=== PATIENT | female | born 1980 | race Caucasian/White ===

== ENCOUNTER 2017-07-27 15:20 | Outpatient (CLI) ==
--- NOTE | 2017-07-27 16:41 | MRI ---
EXAM: MRI of the right knee without contrast COMPARISON: None available. HISTORY: Right knee pain and swelling. TECHNIQUE: Multiplanar noncontrast MR images of the right knee were acquired using a 1.5 Ana Laura magne t. FINDINGS: The medial and lateral menisci are intact without identification of a surfacing meniscal t ear. No parameniscal cyst. Inversion recovery hyperintense signal within the substance of the anterior cruciate ligament though intact fibers are identified suggesting mucoid degeneration versus a sprain. The posterior cruciate l igaments intact. Minimal sprain with scarring of the medial collateral ligament. The lateral collat eral ligament complex and posterolateral corner ligaments are intact. Minimal patellar/quadriceps te ndinosis without a tendon tear. No abnormal subluxation of the patella. Sprain with scarring of the medial patellar retinaculum complex. Subcutaneous edema anteriorly without a drainable fluid collec tion. 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 There is also thinning and ulceration of the cartilage along the opposing articular surface o f the trochlear groove measuring 7 mm in extent. Subtle signal changes in mild contour abnormality o f the medial femoral condyle along the medial weightbearing surface over a region measuring 1.8 x 1.4 x 0.9 cm suggesting sequela of an old osteochondral lesion/osteochondral injury. There is thinning and ulceration of the overlying cartilage at that site with mild contour deformity of the subchondral plate without evidence of an unstable displaced osteochondral fragment. Small joint effusion, nonsp ecific. Slit-like popliteal cyst. No osteochondral body. IMPRESSION: 1. Intact menisci. 2. Findings suggesting an old osteochondral lesion/osteochondral injury of the medial femoral condyl e with associated chondrosis. No unstable or displaced osteochondral fragment or evidence of an acut e injury. 3. Patellofemoral compartment chondrosis as described. 4. Subcutaneous edema. 5. Minimal patellar/quadriceps tendinosis. Sprain with scarring of the medial patellar retinaculum. 6. Mucoid degeneration versus minimal sprain of the anterior cruciate ligament. Minimal sprain of t he medial collateral ligament. 7. Small joint effusion. Slit-like popliteal cyst
== END 2017-07-27 15:21 | disposition home or self-care (01) ==
LOC: RAD 15:20
PROVIDERS: ATTEND Internal Medicine
DX: M25.561 Pain in right knee (principal); M25.461 Effusion, right knee; R26.2 Difficulty in walking, not elsewhere classified

== ENCOUNTER 2018-07-07 09:00 | Outpatient (RCR) | END 2018-07-18 23:59 | PROVIDERS: ATTEND Orthopaedic Surgery | DX: M17.11 Unilateral primary osteoarthritis, right knee (principal); M25.561 Pain in right knee; M62.89 Other specified disorders of muscle; Z98.890 Other specified postprocedural states ==

== ENCOUNTER 2018-07-25 10:19 | Outpatient (RCR) ==
--- NOTE | 2018-07-25 10:40 | RS.QUICKDC ---
Discharge from PT Date of Discharge: 07/25/18 Number of Visits: 5 Reason for Discharge: Patient has good knowledge of HEP,has copies of each exercise.Her R knee flexion is 110 ,but painful,continues to have increased pain as the day progresses.She has seen Dr. Dodge recently,and may consider a total knee replacement ,as she is only getting temporary relief from cortisone ,knee scope ,and therapy.Todays session charges are Ther. Act. 2 (30 mins. )
== END 2018-08-18 23:59 ==
PROVIDERS: ATTEND Orthopaedic Surgery
DX: M17.11 Unilateral primary osteoarthritis, right knee (principal); M25.561 Pain in right knee; G89.29 Other chronic pain; M62.89 Other specified disorders of muscle; Z98.890 Other specified postprocedural states

== ENCOUNTER 2018-11-15 11:00 | Outpatient (RCR) ==
--- NOTE | 2018-10-25 11:50 | RS.OPPTEV2 ---
Date of Note: 10/25/18 Visit #: 1 Number of visits approved by Insurance: no visit limit Date of Evaluation: 10/25/18 Payer Source: Insurance Date of Onset/Injury/Change in Status: 09/23/18 Surgery Performed?: Yes (R TKR 09/23/18) Treatment Diagnosis: R knee OA, R knee pain, aftercare following total knee replacement History of Condition/Mechanism of Injury:: pt states her R knee began to hurt in 08/2017 when began working out at the gym. States both knees became swollen and painful. pt underwent R knee arthroscopy on 05/26/18. pt did undergo PT after arthroscopy, however continued with pain. pt underwent R TKR on 09/23/18. 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 Functional Limitations: Sleep, Self Care, ADL's, Lifting, Carrying, Standing, Bending, Squatting, Ambulation, Community Access/Integration Current Subjective/complaints:: pt states she had a bad home health experience. States therapist was very aggressive and did not listen when she said she was hurting. States she does feel she has done well. States she may have overdone it yesterday going to the mall with her daughter. Treatment Side (optional): Right *Precautions: LATEX ALLERGY Medical History Medical History: Arthritis Surgical History: Knee Replacement (R TKR 09/23/18), Cholecystectomy, Hysterectomy Surgical History Comments:: R hand surgery. Smoking Status: Current every day smoker Hx Home Medications: none Patient's Goals: improve R knee ROM Pain Assessment - Pain Description Pain Location: R knee Pain Description: Sharp, Aching Current Pain Intensity: 5/10 Functional Outcome Measure LE Functional Scale: 46 - G Codes & Severity Modifier G Codes & Modifier: n/a Source of G Code score: n/a Observation - Observation Posture: Forward Head, Rounded Shoulders Handedness: Right Girth Measurement Lower: R knee 42.5cm, 10 cm below 36cm, 10 cm above 44cm. L knee 40 cm, 10 cm below 36cm, 10 cm above 44cm Gait - Gait Pattern General Gait Pattern Observation: Antalgic Gait Gait Comments: pt amb with antalgic gait with decreased stance time on R LE, decreased step length. pt amb independently without AD General Range of Motion: BUE WFL's. LLE WFL's. R LE hip and ankle WFL's Muscle Strength: BUE 5/5. LLE 5/5. RLE hip flex 4/5, ankle Df/PF 4+/5 Knee ROM: Left WFL's Knee Muscle Strength: Left WFL's - Right Knee ROM Right Knee Extension: -8 Right Knee Flexion: 90 (AROM in sitting) Knee ROM Limitations: Soft Tissue Tightness, Muscle Weakness, Pain - Right Knee Strength Right Knee Extension: 3- Fair- Right Knee Flexion: 3- Fair- - Special Tests Patella Apprehension Test: Negative Right Patella J-sign: Negative Right Palpation Palpation Findings: Tenderness Comments:: R post and medial knee Sensation - Sensation Right Upper Extremity: Intact/Normal Left Upper Extremity: Intact/Normal Right Lower Extremity: Impaired (pt with area of N/T lat to incision R knee) Left Lower Extremity: Intact/Normal Balance - Sitting Balance Static Sitting Balance: Normal Dynamic Sitting Balance: Normal - Standing Balance Static Standing Balance: Good Dynamic Standing Balance: Good - Heat/Cryotherapy Treatment: Cryotherapy Comments:: R knee, in long sitting Interventions - Exercise/Activities/Manual Therapy Exercises/Activities: pt performed QS, SAQ, HS, hip abd/add, SLR, LAQ, standing ham curls x 10, short squats x 3 (pt with slight discomfort in L knee with audible crepitus). pt also rode bike x 1-2 mins pt able to complete full revolution with R hip hiking. Manual Therapy: n/a HOME EXERCISE PROGRAM: pt given written HEP including: QS with foot elevated, SAQ, LAQ, SLR, standing heel raises, standing ham curls - Charges Timed Code Treatment Minutes: 49 Total Treatment Time: 53 Procedures billed for this date of service:: eval remi, ex EVALUATION COMPLEXITY LEVEL EVALUATION COMPLEXITY LEVEL: HISTORY: Low, EXAM OF BODY SYSTEMS: Medium, CLINICAL PRESENTATION: Low, CLINICAL DECISION MAKING: Low Assessment Assessment: pt presents with R knee effusion, decreased ROM, decreased strength , decreased gait ability. pt amb with antalgic gait pattern. Feel pt would benefit from skilled PT for therex for R knee ROM, strength and modalities to decrease edema. Patient Education: Home Exercise Program, Education of Plan of Care Rehab Potential: Good Short Term Goals Goal #1: pt independent with initial HEP Goal to be met by: 11/04/18 Goal #2: Decrease edema R knee Goal to be met by: 11/04/18 Goal #3: Improve R knee ROM flex 95 ext -5 Goal to be met by: 11/04/18 Goal #4: Able to ride bike 5 mins and complete full revolution without hip hiking Goal to be met by: 11/04/18 Turntable Operator Goals Goal #1: R knee ROM flex 100 ext 0 Goal to be met by: 11/18/18 Goal #2: pt amb community distances with less antalgic gait pattern decreased pain Goal to be met by: 11/18/18 Goal #3: pt report ability to perform household duties with less pain Goal to be met by: 11/18/18 Goal #4: Improve R quad strength 4/5 Goal to be met by: 11/18/18 Plan - Treatment to be Provided Procedures: Therapeutic Exercises, Therapeutic Activity, Gait Training, Manual Therapy, Patient Education Modalities: Electrical Stimulation, Ultrasound/Phonophoresis, Cryotherapy, Hot Packs - Treatment Plan Frequency: 2-3x a week Duration: 4 weeks Dates of Chcf Goals: 11/18/18 Expiration date of current Insurance Approval:: n/a - Treatment Code (1) Aftercare following knee joint replacement surgery Code(s): Z47.1 - AFTERCARE FOLLOWING JOINT REPLACEMENT SURGERY; Z96.659 - PRESENCE OF UNSPECIFIED ARTIFICIAL KNEE JOINT Qualifiers: Laterality: right Qualified Code(s): Z47.1 - Aftercare following joint replacement surgery; Z96.651 - Presence of right artificial knee joint (2) Effusion, right knee Code(s): M25.461 - EFFUSION, RIGHT KNEE (3) Osteoarthritis of right knee Code(s): M17.9 - OSTEOARTHRITIS OF KNEE, UNSPECIFIED Qualifiers: Osteoarthritis type: primary Qualified Code(s): M17.11 - Unilateral primary osteoarthritis, right knee (4) Pain in right knee Code(s): M25.561 - PAIN IN RIGHT KNEE Qualifiers: Chronicity: chronic Qualified Code(s): M25.561 - Pain in right knee; G89.29 - Other chronic pain
--- NOTE | 2018-10-26 11:16 | RS.OPPTDN ---
Subjective Date of Note: 10/26/18 Visit #: 2 Number of visits approved by Insurance: no limit Date of Evaluation: 10/25/18 Payer Source: Insurance Treatment Diagnosis: R knee OA, R knee pain, aftercare following total knee replacement Current Subjective/complaints:: Patient reports the R knee pain is about the same as yesterday at evaluation. *Precautions: LATEX ALLERGY Pain Assessment - Pain Description Pain Location: R knee Pain Description: Tightness, Aching Current Pain Intensity: 5/10 - Treatment Modality: Electrical Stim Unattended Parameters/Method Applied: 20 mins. IFC @ 12 -14 ma to R knee. Patient Position: Supine - Heat/Cryotherapy Treatment: Cryotherapy (concurrent with e-stim) Interventions - Exercise/Activities/Manual Therapy Exercises/Activities: 20 mins. , pt performed QS, SAQ, HS, hip abd/add, SLR.Grade I AP joint mobs.AROM is -8 extension ,92 flexion.Passive extension is unchanged ,flexion is 95 -98 after joint mobs. Total minutes of Exercise: 20 Manual Therapy: n/a Total minutes of Manual Therapy: 0 HOME EXERCISE PROGRAM: pt given written HEP including: QS with foot elevated, SAQ, LAQ, SLR, standing heel raises, standing ham curls - Charges Timed Code Treatment Minutes: 20 Total Treatment Time: 40 Procedures billed for this date of service:: cp,e-stim,ex 1 Assessment: Patient has moderate edema and warmth in the R knee.She does have increased pain at end range of flexion today,but also understands the edema is the limiting factor at this time.She is attentive and compliant to HEP. Patient Education: Education of diagnosis, Body/Joint mechanics, Home Exercise Program, Home Safety, Activity Modification, Education of Plan of Care Patient demonstrates compliance with HEP?: Yes Short Term Goals Goal #1: pt independent with initial HEP Goal to be met by: 11/04/18 Progress towards Goal:: Progressing Goal #2: Decrease edema R knee Goal to be met by: 11/04/18 Goal #3: Improve R knee ROM flex 95 ext -5 Goal to be met by: 11/04/18 Progress towards Goal:: Progressing Goal #4: Able to ride bike 5 mins and complete full revolution without hip hiking Goal to be met by: 11/04/18 Detention Goals Goal #1: R knee ROM flex 100 ext 0 Goal to be met by: 11/18/18 Goal #2: pt amb community distances with less antalgic gait pattern decreased pain Goal to be met by: 11/18/18 Goal #3: pt report ability to perform household duties with less pain Goal to be met by: 11/18/18 Goal #4: Improve R quad strength /5 Goal to be met by: 11/18/18 Plan Dates of Scaffold Worker Goals: 11/18/18 Expiration date of current Insurance Approval:: na PLAN: Cont. skilled PT per TKA protocol.Patient is 4 1/2 weeks post-op.
--- NOTE | 2018-10-28 11:16 | RS.OPPTDN ---
Subjective Date of Note: 10/28/18 Visit #: 3 Number of visits approved by Insurance: no limit Date of Evaluation: 10/25/18 Payer Source: Insurance Treatment Diagnosis: R knee OA, R knee pain, aftercare following total knee replacement Current Subjective/complaints:: Patient reports the calf pain bothers her more than the knee this morning,but does understand this is due to the antalgic gait. *Precautions: LATEX ALLERGY Pain Assessment - Pain Description Pain Location: R knee and calf Pain Description: Tightness, Dull, Aching Current Pain Intensity: 310 - Treatment Modality: Electrical Stim Unattended Parameters/Method Applied: 20 mins. IFC @ 15-17 ma to R knee. - Heat/Cryotherapy Treatment: Cryotherapy (concurrent with e-stim) Interventions - Exercise/Activities/Manual Therapy Exercises/Activities: 35 mins. , pt performed QS,SAQ,heelslides,SLR's,passive extension on bolster,contract-relax to quads/hams,patellar mobs. Manual Therapy: n/a HOME EXERCISE PROGRAM: pt given written HEP including: QS with foot elevated, SAQ, LAQ, SLR, standing heel raises, standing ham curls - Charges Timed Code Treatment Minutes: 35 Total Treatment Time: 55 Procedures billed for this date of service:: cp,e-stim,ex 2 Assessment: Progressing ,has less warmth ,less edema .She has increased motion with less pain present.She is compliant to HEP Patient Education: Education of diagnosis, Body/Joint mechanics, Home Exercise Program, Home Safety, Activity Modification, Education of Plan of Care Patient demonstrates compliance with HEP?: Yes Short Term Goals Goal #1: pt independent with initial HEP Goal to be met by: 11/04/18 Progress towards Goal:: Progressing Goal #2: Decrease edema R knee Goal to be met by: 11/04/18 Progress towards Goal:: Progressing Goal #3: Improve R knee ROM flex 95 ext -5 Goal to be met by: 11/04/18 (101 flex,-5 ext.) Progress towards Goal:: Partially Met (not yet consistently ,these numbers are with stretch) Goal #4: Able to ride bike 5 mins and complete full revolution without hip hiking Goal to be met by: 11/04/18 (na today) Care Home Goals Goal #1: R knee ROM flex 100 ext 0 Goal to be met by: 11/18/18 Progress towards goal: Progressing Goal #2: pt amb community distances with less antalgic gait pattern decreased pain Goal to be met by: 11/18/18 Progress towards goal: Progressing Goal #3: pt report ability to perform household duties with less pain Goal to be met by: 11/18/18 Goal #4: Improve R quad strength 4/5 Goal to be met by: 11/18/18 Progress towards goal: Progressing Plan Dates of Bakery Clerk Goals: 11/18/18 Expiration date of current Insurance Approval:: na PLAN: Cont. skilled PT to increase strength and motion in the R knee.
--- NOTE | 2018-10-31 11:26 | RS.OPPTDN ---
Subjective Date of Note: 10/31/18 Visit #: 4 Number of visits approved by Insurance: no limit Date of Evaluation: 10/25/18 Payer Source: Insurance Treatment Diagnosis: R knee OA, R knee pain, aftercare following total knee replacement Current Subjective/complaints:: Patient has less antalgic gait ,reports less pain with walkin gtoday. *Precautions: LATEX ALLERGY Pain Assessment - Pain Description Pain Location: R knee Pain Description: Tightness, Dull, Throbbing, Aching Current Pain Intensity: 1-2 at rest Other Comments regarding Pain:: elevates with end range flexion - Treatment Modality: Electrical Stim Unattended Parameters/Method Applied: IFC to R knee @ 12-16 ma. Patient Position: Supine - Heat/Cryotherapy Treatment: Cryotherapy (concurrent with e-stim) Interventions - Exercise/Activities/Manual Therapy Exercises/Activities: 40 mins. ,( beginning with 5 mins. on recumbent bike ) pt performed ankle pumps with yellow t-band , QS,SAQ,heelslides,SLR's,passive extension on bolster,contract-relax to quads/hams,patellar mobs.AROM is 101 flex ,-5 extension with quad set.Passive flexion to 105 briefly.Grade I AP joint mobs. intermittently for increased flexion. Total minutes of Exercise: 40 Manual Therapy: n/a Total minutes of Manual Therapy: 0 HOME EXERCISE PROGRAM: pt given written HEP including: QS with foot elevated, SAQ, LAQ, SLR, standing heel raises, standing ham curls - Charges Timed Code Treatment Minutes: 55 Total Treatment Time: 60 Procedures billed for this date of service:: cp,e-stim ,ex 2 Assessment: Progressing well, less edema ,less warmth present ,has softer end feel for flexion today.She has less antalgic gait pattern.She is compliant to all recommendations of the therapy staff. Patient Education: Education of diagnosis, Body/Joint mechanics, Home Exercise Program, Home Safety, Activity Modification, Education of Plan of Care Patient demonstrates compliance with HEP?: Yes Short Term Goals Goal #1: pt independent with initial HEP Goal to be met by: 11/04/18 Progress towards Goal:: Progressing Goal #2: Decrease edema R knee Goal to be met by: 11/04/18 Progress towards Goal:: Progressing Goal #3: Improve R knee ROM flex 95 ext -5 Goal to be met by: 11/04/18 (101 flex,-5 ext.) Progress towards Goal:: Partially Met (flexion is met ,extension is -8 to -5) Goal #4: Able to ride bike 5 mins and complete full revolution without hip hiking Goal to be met by: 11/04/18 Progress towards Goal:: Met Skilled Nursing Goals Goal #1: R knee ROM flex 100 ext 0 Goal to be met by: 11/18/18 Progress towards goal: Progressing Goal #2: pt amb community distances with less antalgic gait pattern decreased pain Goal to be met by: 11/18/18 Progress towards goal: Progressing Goal #3: pt report ability to perform household duties with less pain Goal to be met by: 11/18/18 Progress towards goal: Progressing Goal #4: Improve R quad strength /5 Goal to be met by: 11/18/18 Progress towards goal: Progressing Plan Dates of Sales Recruiter Goals: 11/18/18 Expiration date of current Insurance Approval:: na PLAN: Cont. skilled PT per TKA protocol.
--- NOTE | 2018-11-02 11:17 | RS.OPPTDN ---
Subjective Date of Note: 11/02/18 Visit #: 5 Number of visits approved by Insurance: no limit Date of Evaluation: 10/25/18 Payer Source: Insurance Treatment Diagnosis: R knee OA, R knee pain, aftercare following total knee replacement Current Subjective/complaints:: Patient has increased R knee swelling ,but she reports she has been on her feet more the last couple of days.He rpain is minimal at this time. *Precautions: LATEX ALLERGY Pain Assessment - Pain Description Pain Location: R knee Pain Description: Tightness, Dull, Aching Current Pain Intensity: 1/10 at rest - Heat/Cryotherapy Treatment: Cryotherapy (10 mins. after exercises) Interventions - Exercise/Activities/Manual Therapy Exercises/Activities: 50 mins. ,( beginning with 10 mins. on recumbent bike ) pt performed ankle pumps with yellow t-band , QS,SAQ,heelslides,SLR's,passive extension on bolster,contract-relax to quads/hams,patellar mobs.AROM is 105 flex ,-5 extension with quad set.Grade I AP joint mobs. intermittently for increased flexion. Total minutes of Exercise: 50 Manual Therapy: n/a Total minutes of Manual Therapy: 0 HOME EXERCISE PROGRAM: pt given written HEP including: QS with foot elevated, SAQ, LAQ, SLR, standing heel raises, standing ham curls - Charges Timed Code Treatment Minutes: 40 Total Treatment Time: 60 Procedures billed for this date of service:: ex 3, cp Assessment: Patient continues to progress well,has increased active motion with less intensity of pain today.She has soft end feel present for flexion.The edema lessens after exercises today,also less warmth present.She is attentive and motivated to improve. Patient Education: Body/Joint mechanics, Home Exercise Program, Education of Plan of Care Patient demonstrates compliance with HEP?: Yes Short Term Goals Goal #1: pt independent with initial HEP Goal to be met by: 11/04/18 Progress towards Goal:: Met Goal #2: Decrease edema R knee Goal to be met by: 11/04/18 Progress towards Goal:: Progressing Goal #3: Improve R knee ROM flex 95 ext -5 Goal to be met by: 11/04/18 Progress towards Goal:: Met (flexion is met ,extension is -8 to -5) Goal #4: Able to ride bike 5 mins and complete full revolution without hip hiking Goal to be met by: 11/04/18 Progress towards Goal:: Met Senior Test Analyst Goals Goal #1: R knee ROM flex 100 ext 0 Goal to be met by: 11/18/18 Progress towards goal: Progressing Goal #2: pt amb community distances with less antalgic gait pattern decreased pain Goal to be met by: 11/18/18 Progress towards goal: Progressing Goal #3: pt report ability to perform household duties with less pain Goal to be met by: 11/18/18 Progress towards goal: Progressing Goal #4: Improve R quad strength 4/5 Goal to be met by: 11/18/18 Progress towards goal: Progressing Plan Dates of Custodial Goals: 11/18/18 Expiration date of current Insurance Approval:: na PLAN: Cont. skilled PT to maximize motion and strength in the R knee.
--- NOTE | 2018-11-04 10:55 | RS.OPPTDN ---
Subjective Date of Note: 11/04/18 Visit #: 6 Number of visits approved by Insurance: no limit Date of Evaluation: 10/25/18 Payer Source: Insurance Treatment Diagnosis: R knee OA, R knee pain, aftercare following total knee replacement Current Subjective/complaints:: Patient reports slight elevation of pain ,feels this is possibly due to the cooler ,rainy weather. *Precautions: LATEX ALLERGY Pain Assessment - Pain Description Pain Location: R knee Pain Description: Tightness, Dull, Aching Current Pain Intensity: 3 - Heat/Cryotherapy Treatment: Cryotherapy (15 mins. after exercises) Interventions - Exercise/Activities/Manual Therapy Exercises/Activities: 50 mins. ,( beginning with 10 mins. on recumbent bike ) pt performed ankle pumps , QS,SAQ,heelslides,SLR's,passive extension on bolster ,contract-relax to quads/hams,patellar mobs.AROM is 105 - 107 flex,-3 extension with quad set.Grade I AP joint mobs. intermittently for increased flexion. Total minutes of Exercise: 50 Manual Therapy: n/a Total minutes of Manual Therapy: 0 HOME EXERCISE PROGRAM: pt given written HEP including: QS with foot elevated, SAQ, LAQ, SLR, standing heel raises, standing ham curls - Charges Timed Code Treatment Minutes: 40 Total Treatment Time: 60 Procedures billed for this date of service:: ex 3,cp Assessment: Progressing well toward all rehab goals.She has soft end feel for flex / ext.She has less warmth present in the R knee today. Patient Education: Education of diagnosis, Body/Joint mechanics, Home Exercise Program, Home Safety, Activity Modification, Education of Plan of Care Patient demonstrates compliance with HEP?: Yes Short Term Goals Goal #1: pt independent with initial HEP Goal to be met by: 11/04/18 Progress towards Goal:: Met Goal #2: Decrease edema R knee Goal to be met by: 11/04/18 Progress towards Goal:: Progressing Goal #3: Improve R knee ROM flex 95 ext -5 Goal to be met by: 11/04/18 Progress towards Goal:: Met (flexion is met ,extension is -8 to -5) Goal #4: Able to ride bike 5 mins and complete full revolution without hip hiking Goal to be met by: 11/04/18 Progress towards Goal:: Met Intermediate Goals Goal #1: R knee ROM flex 100 ext 0 Goal to be met by: 11/18/18 Progress towards goal: Partially Met (flex is 105 ,extis -5 to -3) Goal #2: pt amb community distances with less antalgic gait pattern decreased pain Goal to be met by: 11/18/18 Progress towards goal: Progressing Goal #3: pt report ability to perform household duties with less pain Goal to be met by: 11/18/18 Progress towards goal: Progressing Goal #4: Improve R quad strength 4/5 Goal to be met by: 11/18/18 Progress towards goal: Progressing Plan Dates of Architect Manager Goals: 11/18/18 Expiration date of current Insurance Approval:: no limit PLAN: Cont Rx per TKA protocol.
--- NOTE | 2018-11-07 11:00 | RS.OPPTDN ---
Subjective Date of Note: 11/07/18 Visit #: 7 Number of visits approved by Insurance: na Date of Evaluation: 10/25/18 Payer Source: Insurance Treatment Diagnosis: R knee OA, R knee pain, aftercare following total knee replacement Current Subjective/complaints:: Patient reports having a busy day yesterday , but tolerated it well.She is active and motivated to improve. *Precautions: LATEX ALLERGY Pain Assessment - Pain Description Current Pain Intensity: 1 at rest - Heat/Cryotherapy Treatment: Cryotherapy (10 mins. after exercises) Interventions - Exercise/Activities/Manual Therapy Exercises/Activities: 50 mins. ,( beginning with 10 mins. on recumbent bike ) pt performed ankle pumps , QS,SAQ,heelslides,SLR's,passive extension on bolster ,contract-relax to quads/hams,patellar mobs.Standing hams. curls ansd hip flexion to 90.AROM is 108 degrees flex,-3 extension with quad set.Grade I AP joint mobs. intermittently for increased flexion. Total minutes of Exercise: 50 Manual Therapy: n/a Total minutes of Manual Therapy: 0 HOME EXERCISE PROGRAM: pt given written HEP including: QS with foot elevated, SAQ, LAQ, SLR, standing heel raises, standing ham curls - Charges Timed Code Treatment Minutes: 40 Total Treatment Time: 60 Procedures billed for this date of service:: ex 3,cp Assessment: Progressing well in all areas.She has less edema,less warmth present .The quads and hams. strength is improving .She has soft end feel present for flexion. Patient Education: Education of diagnosis, Body/Joint mechanics, Home Exercise Program, Home Safety, Activity Modification, Education of Plan of Care Patient demonstrates compliance with HEP?: Yes Short Term Goals Goal #1: pt independent with initial HEP Goal to be met by: 11/04/18 Progress towards Goal:: Met Goal #2: Decrease edema R knee Goal to be met by: 11/04/18 Progress towards Goal:: Progressing Goal #3: Improve R knee ROM flex 95 ext -5 Goal to be met by: 11/04/18 Progress towards Goal:: Met (flexion is met ,extension is -8 to -5) Goal #4: Able to ride bike 5 mins and complete full revolution without hip hiking Goal to be met by: 11/04/18 Progress towards Goal:: Met Health Data Analyst Goals Goal #1: R knee ROM flex 100 ext 0 Goal to be met by: 11/18/18 Progress towards goal: Partially Met (flex is 108 ,ext -5 to -3) Goal #2: pt amb community distances with less antalgic gait pattern decreased pain Goal to be met by: 11/18/18 Progress towards goal: Progressing Goal #3: pt report ability to perform household duties with less pain Goal to be met by: 11/18/18 Progress towards goal: Progressing Goal #4: Improve R quad strength /5 Goal to be met by: 11/18/18 Progress towards goal: Met Plan Dates of Health Data Analyst Goals: 11/18/18 Expiration date of current Insurance Approval:: na PLAN: Cont. skilled per TKA protocol.
--- NOTE | 2018-11-09 12:07 | RS.OPPTDN ---
Subjective Date of Note: 11/09/18 Visit #: 8 Number of visits approved by Insurance: na Date of Evaluation: 10/25/18 Payer Source: Insurance Treatment Diagnosis: R knee OA, R knee pain, aftercare following total knee replacement Current Subjective/complaints:: No c/o,R knee appears less swollen today. *Precautions: LATEX ALLERGY Pain Assessment - Pain Description Pain Location: R knee Pain Description: Dull, Aching Current Pain Intensity: 1/10 Interventions - Exercise/Activities/Manual Therapy Exercises/Activities: 55 mins. ,( beginning with 10 mins. on recumbent bike ) pt performed ankle pumps , QS,SAQ,heelslides,SLR's,passive extension on bolster ,contract-relax to quads/hams,patellar mobs.Standing hams. curls and hip flexion with 4# to 90.AROM is 110 degrees flex,-3 extension with quad set.Grade I AP joint mobs. intermittently for increased flexion. Total minutes of Exercise: 55 Manual Therapy: n/a Total minutes of Manual Therapy: 0 HOME EXERCISE PROGRAM: pt given written HEP including: QS with foot elevated, SAQ, LAQ, SLR, standing heel raises, standing ham curls - Charges Timed Code Treatment Minutes: 45 Total Treatment Time: 55 Procedures billed for this date of service:: ex 3 Assessment: Progressing in all areas.The R knee edema is lessening, significantly less warmth present today.She can benefit from increased knee flexion and strength for ADL's outside of the home .She is very compliant to HEP and rercommendations of the therapy staff. Patient Education: Education of diagnosis, Body/Joint mechanics, Home Exercise Program, Home Safety, Activity Modification, Education of Plan of Care Patient demonstrates compliance with HEP?: Yes Short Term Goals Goal #1: pt independent with initial HEP Goal to be met by: 11/04/18 Progress towards Goal:: Met Goal #2: Decrease edema R knee Goal to be met by: 11/04/18 Progress towards Goal:: Progressing Goal #3: Improve R knee ROM flex 95 ext -5 Goal to be met by: 11/04/18 Progress towards Goal:: Met (flexion is met ,extension is -8 to -5) Goal #4: Able to ride bike 5 mins and complete full revolution without hip hiking Goal to be met by: 11/04/18 Progress towards Goal:: Met Process Control Specialist Goals Goal #1: R knee ROM flex 100 ext 0 Goal to be met by: 11/18/18 Progress towards goal: Partially Met (flex is 110 ,ext -5 to -3) Goal #2: pt amb community distances with less antalgic gait pattern decreased pain Goal to be met by: 11/18/18 Progress towards goal: Progressing Goal #3: pt report ability to perform household duties with less pain Goal to be met by: 11/18/18 Progress towards goal: Progressing Goal #4: Improve R quad strength 4/5 Goal to be met by: 11/18/18 Progress towards goal: Met Plan Dates of Process Control Specialist Goals: 11/18/18 Expiration date of current Insurance Approval:: na PLAN: Cont. skilled PT per TKA protocl,return to highest level of strength and AROM.
--- NOTE | 2018-11-15 12:50 | RS.OPPTDN ---
Subjective Date of Note: 11/15/18 Visit #: 9 Number of visits approved by Insurance: na Date of Evaluation: 10/25/18 Payer Source: Insurance Treatment Diagnosis: R knee OA, R knee pain, aftercare following total knee replacement Current Subjective/complaints:: Patient enters clinic with minimal antalgic gait ,but reports she was on her feet alot more over the past 4 days due to family vacation. *Precautions: LATEX ALLERGY Pain Assessment - Pain Description Pain Location: R knee Pain Description: Dull, Aching Current Pain Intensity: not rated - Heat/Cryotherapy Treatment: Cryotherapy (10 mins. after ex) Interventions - Exercise/Activities/Manual Therapy Exercises/Activities: 55 mins. ,( beginning with 10 mins. on recumbent bike ) pt performed ankle pumps , QS,SAQ,heelslides,SLR's,passive extension on bolster ,contract-relax to quads/hams,patellar mobs.Standing hams. curls and hip flexion with 4# to 90.AROM is 110 degrees flex,-3 extension with quad set.Grade I AP joint mobs. intermittently for increased flexion.Passive flexion is 113 , but painful. Total minutes of Exercise: 55 Manual Therapy: n/a Total minutes of Manual Therapy: 0 HOME EXERCISE PROGRAM: pt given written HEP including: QS with foot elevated, SAQ, LAQ, SLR, standing heel raises, standing ham curls - Charges Timed Code Treatment Minutes: 45 Total Treatment Time: 65 Procedures billed for this date of service:: ex 3,cp Assessment: Patient has increased strength in quads and hamstrings .The flexion is the same actively as last session ,but the passive flexion to 113 elicits pain today.She has less edema ,but slight increase in the warmth. Patient Education: Education of diagnosis, Body/Joint mechanics, Home Exercise Program, Home Safety, Activity Modification, Education of Plan of Care Patient demonstrates compliance with HEP?: Yes Short Term Goals Goal #1: pt independent with initial HEP Goal to be met by: 11/04/18 Progress towards Goal:: Met Goal #2: Decrease edema R knee Goal to be met by: 11/04/18 Progress towards Goal:: Progressing Goal #3: Improve R knee ROM flex 95 ext -5 Goal to be met by: 11/04/18 Progress towards Goal:: Met (flexion is met ,extension is -8 to -5) Goal #4: Able to ride bike 5 mins and complete full revolution without hip hiking Goal to be met by: 11/04/18 Progress towards Goal:: Met Fdc Goals Goal #1: R knee ROM flex 100 ext 0 Goal to be met by: 11/18/18 Progress towards goal: Partially Met (flex is 110 actively,113 with stretch , ext -5 to -3) Goal #2: pt amb community distances with less antalgic gait pattern decreased pain Goal to be met by: 11/18/18 Progress towards goal: Met Goal #3: pt report ability to perform household duties with less pain Goal to be met by: 11/18/18 Progress towards goal: Progressing Goal #4: Improve R quad strength / Goal to be met by: 11/18/18 Progress towards goal: Met Plan Dates of Fdc Goals: 11/18/18 Expiration date of current Insurance Approval:: na PLAN: Cont. skilled PT to increase strength and ROM in the R knee.
== END 2018-11-15 23:59 ==
PROVIDERS: ATTEND Orthopaedic Surgery
DX: Z47.1 Aftercare following joint replacement surgery (principal); Z96.651 Presence of right artificial knee joint; M25.461 Effusion, right knee; M25.561 Pain in right knee; G89.29 Other chronic pain; M17.11 Unilateral primary osteoarthritis, right knee

== ENCOUNTER 2018-12-07 15:00 | Outpatient (RCR) ==
--- NOTE | 2018-11-17 12:52 | RS.OPPTDN ---
Subjective Date of Note: 11/17/18 Visit #: 10 Number of visits approved by Insurance: na Date of Evaluation: 10/25/18 Payer Source: Insurance Treatment Diagnosis: R knee OA, R knee pain, aftercare following total knee replacement Current Subjective/complaints:: Patient reports the rainy weather is caused the knee to ache more ,but no sharp pain with walking. *Precautions: LATEX ALLERGY - Heat/Cryotherapy Treatment: Cryotherapy (10 mins. after exercises) Interventions - Exercise/Activities/Manual Therapy Exercises/Activities: 50 mins. ,( beginning with 10 mins. on recumbent bike ) , progressed to bilateral leg press,08/02 each @ 75#,90#,105#.R LE only leg press @ 45 # ,15.AP joint mobs to R knee .AROM is 110 -112 flexion,-3 extension with quad set. Total minutes of Exercise: 50 Manual Therapy: n/a Total minutes of Manual Therapy: 0 HOME EXERCISE PROGRAM: pt given written HEP including: QS with foot elevated, SAQ, LAQ, SLR, standing heel raises, standing ham curls - Charges Timed Code Treatment Minutes: 50 Total Treatment Time: 60 Procedures billed for this date of service:: ex 3,cp Assessment: Patient progressing well,increased strength in quads/hamstrings.The active knee extension is increased as the hamstring tightness lessens.The flexion is better actively ,soft end feel present for passive stretch. Patient Education: Education of diagnosis, Body/Joint mechanics, Home Exercise Program, Home Safety, Activity Modification, Education of Plan of Care Patient demonstrates compliance with HEP?: Yes Short Term Goals Goal #1: pt independent with initial HEP Goal to be met by: 11/04/18 Progress towards Goal:: Met Goal #2: Decrease edema R knee Goal to be met by: 11/04/18 Progress towards Goal:: Progressing Goal #3: Improve R knee ROM flex 95 ext -5 Goal to be met by: 11/04/18 Progress towards Goal:: Met (flexion is met ,extension is -8 to -5) Goal #4: Able to ride bike 5 mins and complete full revolution without hip hiking Goal to be met by: 11/04/18 Progress towards Goal:: Met Commercial Reporter Goals Goal #1: R knee ROM flex 100 ext 0 Goal to be met by: 11/18/18 Progress towards goal: Partially Met (flex is 110 - 112actively,ext -5 to -3) Goal #2: pt amb community distances with less antalgic gait pattern decreased pain Goal to be met by: 11/18/18 Progress towards goal: Met Goal #3: pt report ability to perform household duties with less pain Goal to be met by: 11/18/18 Progress towards goal: Progressing Goal #4: Improve R quad strength /5 Goal to be met by: 11/18/18 Progress towards goal: Met Plan Dates of Skilled Nursing Goals: 11/18/18 Expiration date of current Insurance Approval:: na PLAN: Cont. skilled PT to maximize strength and motion in the R knee.
--- NOTE | 2018-11-21 13:09 | RS.PTSUM ---
Progress Note/Summary Date of Note: 11/21/18 Date of Evaluation: 10/25/18 Number of Visits: 11 Reporting Period for this Progress Note: 10/25/18-11/21/18 Current Complaints/Gains: pt states she is doing much better, states her muscles just still feel "tight". States she has become more active at home. Objective Measurements/Presentation: R knee AAROM flex 113, ext -3. Strength R hip flex 5/5, knee flex 4-/5, ext 4-/5, ankle DF/PF 5/5. pt rates pain approx 2-3/10. pt with min swelling RLE. G Codes: n/a Source of G Code Score: n/a - Short Term Goals Goal #1: pt independent with initial HEP Goal to be met by: 11/04/18 Progress towards Goal:: Met Goal #2: Decrease edema R knee Goal to be met by: 11/04/18 Progress towards Goal:: Met Goal #3: Improve R knee ROM flex 95 ext -5 Goal to be met by: 11/04/18 Progress towards Goal:: Met (flexion is met ,extension is -8 to -5) Goal #4: Able to ride bike 5 mins and complete full revolution without hip hiking Goal to be met by: 11/04/18 Progress towards Goal:: Met - Inpatient Auditor Goals Goal #1: R knee ROM flex 118 ext 0 Goal to be met by: 12/12/18 (goal modified 11/21/18) Goal #2: pt amb community distances with less antalgic gait pattern decreased pain Goal to be met by: 11/18/18 Progress towards goal: Met Goal #3: pt report ability to perform household duties with less pain Goal to be met by: 12/12/18 Goal #4: Improve R quad strength 4/5 Goal to be met by: 11/18/18 Progress towards goal: Met - Assessment Assessment of Improvement/Progress: pt has met all STG's and LTG 2 and 4. pt continues with decreased strength and ROM R knee. pt has made significant progress with gait sequencing and strength. Feel pt would benefit from continued PT with focus on ROM as well as strengthening. Summary: Patient has made progress towards goals., Patient demonstrates potential to gain increased function with therapy - Plan Plan: Continue Plan of Care Frequency: 2 X week Duration: 3 weeks Dates of Halfway Goals: 12/12/18 Expiration date of current Insurance Approval:: n/a
--- NOTE | 2018-11-23 11:24 | RS.CXNS ---
Date of scheduled appointment: 11/23/18 Type: Rescheduled Reason for Cancel/NS: Patient arrived today ,began the warm-up on the bike ,had to leave to take care of unexpected business.She did re-schedule for next week.
--- NOTE | 2018-11-28 12:00 | RS.OPPTDN ---
Subjective Date of Note: 11/28/18 Visit #: 12 Number of visits approved by Insurance: na Date of Evaluation: 10/25/18 Payer Source: Insurance Treatment Diagnosis: R knee OA, R knee pain, aftercare following total knee replacement Current Subjective/complaints:: Patient reports feeling better every week.She has no pain today with activity,but feels fatigue after being up on her feet for about 1 1/2 hours this AM. *Precautions: LATEX ALLERGY Pain Assessment - Pain Description Pain Location: R knee Current Pain Intensity: 0 at rest Other Comments regarding Pain:: soreness at end range of quad stretches Interventions - Exercise/Activities/Manual Therapy Exercises/Activities: 40 mins. ,( beginning with 10 mins. on recumbent bike ) , R LE only on leg press @ 75 ,progressed to 90 # ,3/15 reps.Supine contract- relax to hamstrings,then seated LAQ's .AROM is 110-112 flexion,extension is -3 , standing with foot planted on floor .-5 with LAQ's. Total minutes of Exercise: 40 Manual Therapy: n/a Total minutes of Manual Therapy: 0 HOME EXERCISE PROGRAM: pt given written HEP including: QS with foot elevated, SAQ, LAQ, SLR, standing heel raises, standing ham curls - Charges Timed Code Treatment Minutes: 30 Total Treatment Time: 40 Procedures billed for this date of service:: ex 2 Assessment: Progressing well,minmal warmth in R knee ,minimal edema present on lateral aspect,moderate on medial aspect of R knee.Soft end feel present for flexion.She has goos patellar mobility. Patient Education: Body/Joint mechanics, Home Exercise Program, Education of Plan of Care Patient demonstrates compliance with HEP?: Yes Short Term Goals Goal #1: pt independent with initial HEP Goal to be met by: 11/04/18 Progress towards Goal:: Met Goal #2: Decrease edema R knee Goal to be met by: 11/04/18 Progress towards Goal:: Met Goal #3: Improve R knee ROM flex 95 ext -5 Goal to be met by: 11/04/18 Progress towards Goal:: Met (flexion is met ,extension is -8 to -5) Goal #4: Able to ride bike 5 mins and complete full revolution without hip hiking Goal to be met by: 11/04/18 Progress towards Goal:: Met Fpc Goals Goal #1: R knee ROM flex 118 ext 0 Goal to be met by: 12/12/18 (goal modified 11/21/18) Progress towards goal: Progressing (112 flex,ext-5 to-3) Goal #2: pt amb community distances with less antalgic gait pattern decreased pain Goal to be met by: 11/18/18 Progress towards goal: Met Goal #3: pt report ability to perform household duties with less pain Goal to be met by: 12/12/18 Progress towards goal: Progressing Goal #4: Improve R quad strength / Goal to be met by: 11/18/18 Progress towards goal: Met Plan Dates of Fpc Goals: 12/12/18 Expiration date of current Insurance Approval:: na PLAN: Cont. skilled PT to maximize strength and motion in the R knee.
--- NOTE | 2018-12-02 13:34 | RS.OPPTDN ---
Subjective Date of Note: 12/02/18 Visit #: 13 Number of visits approved by Insurance: [id number] Date of Evaluation: 10/25/18 Payer Source: Insurance Treatment Diagnosis: R knee OA, R knee pain, aftercare following total knee replacement Current Subjective/complaints:: Patient says she "overdid it" yesterday. She went with her daughters to [place] and walked much more than usual as well as partaking in the rides. She says she had swelling that night, but was down this morning. She reports taking Tylenol prior to therapy. *Precautions: LATEX ALLERGY Pain Assessment - Pain Description Pain Location: Medial aspect of the R knee - Heat/Cryotherapy Treatment: Cryotherapy (x 15 mins to the R knee after therex) Interventions - Exercise/Activities/Manual Therapy Exercises/Activities: 30 mins. (40 mins total) Patient begins with stationary bike forward/reverse with static stretching for flexion and extension upon intermittent instruction x 10 mins. Supine for patellar mobs, intermittent stretching for hamstrings, flexion, and heel cords. Contract/relax methods for improved mobilization. QS, SLR, more stretching over bolster to improve extension. Ended with cryotherapy. Manual Therapy: n/a HOME EXERCISE PROGRAM: pt given written HEP including: QS with foot elevated, SAQ, LAQ, SLR, standing heel raises, standing ham curls - Charges Timed Code Treatment Minutes: 30 Total Treatment Time: 55 Procedures billed for this date of service:: cp, ex2 Assessment: Patient presents with increased R knee pain and tenderness to the medial aspect related to increased activity [place] amusement [place]. She admits improvement in mobility and pain following cryotherapy today, but will possibly also take more Tylenol tonight to combat any elevation from therapy. Patient Education: Home Exercise Program, Activity Modification, Education of Plan of Care Patient demonstrates compliance with HEP?: Yes Short Term Goals Goal #1: pt independent with initial HEP Goal to be met by: 11/04/18 Progress towards Goal:: Met Goal #2: Decrease edema R knee Goal to be met by: 11/04/18 Progress towards Goal:: Met Goal #3: Improve R knee ROM flex 95 ext -5 Goal to be met by: 11/04/18 Progress towards Goal:: Met (flexion is met ,extension is -8 to -5) Goal #4: Able to ride bike 5 mins and complete full revolution without hip hiking Goal to be met by: 11/04/18 Progress towards Goal:: Met Residential Goals Goal #1: R knee ROM flex 118 ext 0 Goal to be met by: 12/12/18 (goal modified 11/21/18) Progress towards goal: Progressing (112 flex,ext-5 to-3) Goal #2: pt amb community distances with less antalgic gait pattern decreased pain Goal to be met by: 11/18/18 Progress towards goal: Met Goal #3: pt report ability to perform household duties with less pain Goal to be met by: 12/12/18 Progress towards goal: Progressing Goal #4: Improve R quad strength 4/5 Goal to be met by: 11/18/18 Progress towards goal: Met Plan Dates of Recruitment Coordinator Goals: 12/12/18 Expiration date of current Insurance Approval:: 12/12/18 PLAN: Continue BIW for ROM and strength to the R knee x 3 more sessions.
--- NOTE | 2018-12-05 15:08 | RS.OPPTDN ---
Subjective Date of Note: 12/05/18 Visit #: 14 Number of visits approved by Insurance: [id number] Date of Evaluation: 10/25/18 Payer Source: Insurance Treatment Diagnosis: R knee OA, R knee pain, aftercare following total knee replacement Current Subjective/complaints:: Pain in medial L knee 07/28 *Precautions: LATEX ALLERGY Pain Assessment - Pain Description Pain Location: medial L knee Pain Description: Dull Current Pain Intensity: 1/10 Worst Pain Intensity: 4/10 Other Comments regarding Pain:: Pain increased to 2/10 post exercises - Heat/Cryotherapy Treatment: Cryotherapy Comments:: Patient long sitting on mat table for 10 min of cryotherapy post therapy Interventions - Exercise/Activities/Manual Therapy Exercises/Activities: 30 mins. (40 mins total) Patient begins with stationary bike forward/reverse with static stretching for flexion and extension upon intermittent instruction x 10 mins. Supine for patellar mobs, intermittent stretching for hamstrings, flexion, and heel cords. Hold relax and active stretching methods for hip flexion for improved mobilization. QS L ankle supported on rolled towel, SAQ, LAQ, SLR, Ended with cryotherapy. Manual Therapy: n/a HOME EXERCISE PROGRAM: pt given written HEP including: QS with foot elevated, SAQ, LAQ, SLR, standing heel raises, standing ham curls - Charges Timed Code Treatment Minutes: 40 Total Treatment Time: 52 Procedures billed for this date of service:: CP 1, EX 3 Short Term Goals Goal #1: pt independent with initial HEP Goal to be met by: 11/04/18 Progress towards Goal:: Met Goal #2: Decrease edema R knee Goal to be met by: 11/04/18 Progress towards Goal:: Met Goal #3: Improve R knee ROM flex 95 ext -5 Goal to be met by: 11/04/18 Progress towards Goal:: Met (flexion is met ,extension is -8 to -5) Goal #4: Able to ride bike 5 mins and complete full revolution without hip hiking Goal to be met by: 11/04/18 Progress towards Goal:: Met Supervisor Building Maintenance Goals Goal #1: R knee ROM flex 118 ext 0 Goal to be met by: 12/12/18 (goal modified 11/21/18) Progress towards goal: Progressing (112 flex,ext-5 to-3) Goal #2: pt amb community distances with less antalgic gait pattern decreased pain Goal to be met by: 11/18/18 Progress towards goal: Met Goal #3: pt report ability to perform household duties with less pain Goal to be met by: 12/12/18 Progress towards goal: Progressing Goal #4: Improve R quad strength /5 Goal to be met by: 11/18/18 Progress towards goal: Met Plan Dates of Supervisor Building Maintenance Goals: 12/12/18 Expiration date of current Insurance Approval:: 12/12/18 PLAN: Continue with curret POC
--- NOTE | 2018-12-07 16:38 | RS.OPPTDN ---
Subjective Date of Note: 12/07/18 Visit #: 15 Number of visits approved by Insurance: 16 Date of Evaluation: 10/25/18 Payer Source: Insurance Treatment Diagnosis: R knee OA, R knee pain, aftercare following total knee replacement Current Subjective/complaints:: Patient states she is having a new pain located at the lateral R knee and just proximally at the tibia. She says she has always had some numbness here and more soreness at the medial aspect. She says she has been using ice packs at home and HEP. *Precautions: LATEX ALLERGY - Heat/Cryotherapy Treatment: Cryotherapy (12 mins to the R knee in longsitting) Interventions - Exercise/Activities/Manual Therapy Exercises/Activities: 30 mins. (40 mins total) Patient begins with stationary bike forward/reverse with static stretching for flexion and extension upon intermittent instruction x 10 mins. Supine for patellar mobs, intermittent stretching for hamstrings, flexion, and heel cords. Contract/relax techniques to improve mobility. Stretching hamstrings with ankle over bolster and cycling with QS. SAQ 2#, DF with green tband (over shoe so that latex does not come in contact with skin), SLR 2x10 reps. Ended with cryotherapy. Manual Therapy: n/a HOME EXERCISE PROGRAM: pt given written HEP including: QS with foot elevated, SAQ, LAQ, SLR, standing heel raises, standing ham curls - Charges Timed Code Treatment Minutes: 40 Total Treatment Time: 55 Procedures billed for this date of service:: cp, ex2 Assessment: Patient unable to attend her last session due to time constraints with appts by 12/12/18. Patient's HEP was advanced with latex free tbands and satisfied with progress at this point. She does not have another follow up appt with her MD until mid December. ROM is -3 degrees today to 117 degrees actively. Patient Education: Education of diagnosis, Body/Joint mechanics, Home Exercise Program, Education of Plan of Care Patient demonstrates compliance with HEP?: Yes Short Term Goals Goal #1: pt independent with initial HEP Goal to be met by: 11/04/18 Progress towards Goal:: Met Goal #2: Decrease edema R knee Goal to be met by: 11/04/18 Progress towards Goal:: Met Goal #3: Improve R knee ROM flex 95 ext -5 Goal to be met by: 11/04/18 Progress towards Goal:: Met (flexion is met ,extension is -3 today) Goal #4: Able to ride bike 5 mins and complete full revolution without hip hiking Goal to be met by: 11/04/18 Progress towards Goal:: Met Marketing Strategy Lead Goals Goal #1: R knee ROM flex 118 ext 0 Goal to be met by: 12/12/18 (goal modified 11/21/18) Progress towards goal: Progressing (117 flex,ext-5 to-3) Goal #2: pt amb community distances with less antalgic gait pattern decreased pain Goal to be met by: 11/18/18 Progress towards goal: Met Goal #3: pt report ability to perform household duties with less pain Goal to be met by: 12/12/18 Progress towards goal: Progressing Goal #4: Improve R quad strength / Goal to be met by: 11/18/18 Progress towards goal: Met Plan Dates of Jail Goals: 12/12/18 Expiration date of current Insurance Approval:: 12/12/18 PLAN: Suggest Discharge as she has completed 15 sessions by LTG dates and is confident in HEP and pain control at home.
== END 2018-12-16 23:59 ==
PROVIDERS: ATTEND Orthopaedic Surgery
DX: Z47.1 Aftercare following joint replacement surgery (principal); Z96.651 Presence of right artificial knee joint